=== PATIENT | male | born 1985 | race Caucasian/White ===

== ENCOUNTER 2018-07-15 07:23 | Day surgery (SDC) | payer OTHER ==
[~2018-07-15] VITALS: Ht 175.3 cm; Wt 122.2 kg
[~2018-07-15 07:23] MED LIST: AMOXICILLIN 8751 TAB PO; CLOMID; CLOMIPHENE CITRATE; CLOMIPHENE CITRATE PO; FISH OIL1000 MG PO; HYZAAR 25 MG-101 TAB PO; LEXAPRO 10MG10 MG PO; LEXAPRO20 MG PO; LOPRESSOR 225 MG/TAB PO; MULTI VITAMINS1 TAB PO; NORCO 325 MG-51 TAB PO; PRIL40 PO; PRILOTC; ROXICODONE 55 MG/TAB PO; VITAMIN D 400400 IU PO; ZEBETA 5MG5 MG PO
[2018-07-15 07:52] VITALS: BP 116/68; PULSE 56; TEMP 98.4
[2018-07-15] MEDS ORDERED: CLOMID50 MG (08:13)
[2018-07-15 09:40] VITALS: BP 121/65; PULSE 58; TEMP 98
--- NOTE | 2018-07-15 09:40 | NUR ---
Pt returns from endo procedure via cart. Pt ambulates from cart to recliner with RN assist. Pt oriented but a little drowsy. Pt answers all questions appropriately. Monitors on and alarms set. Call light within reach. Report received from Caitlyn. Family present in room. Pt requests ice water only. Pt denies any pain or nausea.
[2018-07-15 09:45] VITALS: BP 112/61; PULSE 56
[2018-07-15 10:00] VITALS: BP 111/65; PULSE 55
--- NOTE | 2018-07-15 10:00 | NUR ---
Pt taking drink well. No complaints voiced.
[2018-07-15 10:15] VITALS: BP 120/63; PULSE 56
--- NOTE | 2018-07-15 10:30 | NUR ---
Discharge instructions given to patient and . All questions answered to their satisfaction. Handed to patient are discharge instructions, diagnosis information, and a discharge med sheet.
--- NOTE | 2018-07-15 10:35 | NUR ---
Pt transferred out of hospital via wheelchair and Amanda assist to private vehicle driven by .
[2018-07-15 12:53] VITALS: BP 105/46; PULSE 63
== END 2018-07-15 10:35 | disposition home or self-care (01) ==
LOC: SDCO 07:23
DX: K22.70 Barrett's esophagus without dysplasia (principal); R13.12 Dysphagia, oropharyngeal phase; K21.9 Gastro-esophageal reflux disease without esophagitis; Z79.899 Other long term (current) drug therapy; I10 Essential (primary) hypertension; R19.4 Change in bowel habit
CPT/HCPCS: J2250; J3010; J7030

== ENCOUNTER → 2019-03-29 | Outpatient (CLI) | payer OTHER ==
[~2019-03-29] MED LIST changes: +CLOMID50 MG
== END ==
LOC: COL.RAD 13:31
DX: M48.07 Spinal stenosis, lumbosacral region (principal); M51.15 Intervertebral disc disorders with radiculopathy, thoracolumbar region; M48.04 Spinal stenosis, thoracic region

== ENCOUNTER 2019-07-30 11:34 | Observation (INO) | payer OTHER ==
[~2019-07-30] VITALS: Ht 177.8 cm; Wt 124.9 kg
[2019-07-30 12:27] LABS: COLLECTION METHOD CLEAN CATCH
[2019-07-30 12:30] LABS: BASO # 0.1 (0.0-0.2); BASO % 0.6 % (0.0-2.0); EOS % 0.4 % (0-4.0); GRAN # 8.2 (1.4-6.5); GRAN % 82.4 % (42.2-75.2); HEMATOCRIT 45.1 % (42.0-52.0); LYMPH # 1.1 (1.2-3.4); LYMPH % 10.6 % (20.0-51.0); MEAN CELL VOLUME 88 fl (80.0-100.0); MEAN CORPUSCULAR HEMOGLOBIN 31 pg (27.0-31.0); MEAN CORPUSCULAR HGB CONC 36 g/dl (33.0-37.0); MEAN PLATELET VOLUME 9.8 fl (7.4-10.4); MONO # 0.6 (0.1-0.6); MONO % 5.6 % (1.7-9.3); PLATELET COUNT 201 K/mm3 (130-400); REDCELL DISTRIBUTION WIDTH-CV 12.6 % (11.5-14.5)
[2019-07-30 12:32] LABS: PH 7 (5-8); SQUAMOUS EPITHELIAL None Seen /hpf; URINE APPEARANCE Clear; URINE BACTERIA Rare /hpf; URINE BILIRUBIN Negative (NEGATIVE); URINE BLOOD Negative (NEGATIVE); URINE COLOR Yellow; URINE GLUCOSE Negative (NEGATIVE); URINE KETONE Negative (NEGATIVE); URINE LEUKOCYTE ESTERASE Negative (NEGATIVE); URINE NITRATE Negative (NEGATIVE); URINE PROTEIN(semi-quant) Negative (NEGATIVE); URINE RBC 0-2 /hpf; URINE UROBILINOGEN Negative (NEGATIVE)
[2019-07-30 12:53] LABS: ALBUMIN 4.6 gm/dL (3.5-5.0); BILIRUBIN,TOTAL 1.2 mg/dL (0.0-1.0); C-REACTIVE PROTEIN 3.6 mg/dL (0.0-0.9); CALCIUM 9.3 mg/dL (8.4-10.2); CREATININE, serum 0.79 (0.66-1.25); POTASSIUM 3.5 mmol/L (3.4-5.0); TOTAL PROTEIN 7.6 gm/dL (6.4-8.2)
[2019-07-30] MEDS ORDERED: COLACE 100100 MG/CAP PO (16:54)
[2019-07-30] MEDS ORDERED: MOTRIN 600600 MG/TAB PO (16:54)
[2019-07-30] MEDS ORDERED: PERCOCET 325 MG1 TA2 PO (16:54)
[2019-07-30 17:01] VITALS: TEMP 100.2
[2019-07-30 17:10] VITALS: BP 128/56; PULSE 74
--- NOTE | 2019-07-30 17:10 | NUR ---
Patient arrives to floor via bed from PACU. Patient is alert and oriented, reports pain is controlled at this time. Post op checks initiated. Call light within reach.
[2019-07-30 17:25] VITALS: BP 124/63; PULSE 63
[2019-07-30 17:40] VITALS: BP 126/62; PULSE 70
[2019-07-30 17:55] VITALS: BP 124/62; PULSE 68
[2019-07-30 18:25] VITALS: BP 135/62; PULSE 73
--- NOTE | 2019-07-30 19:39 | NUR ---
Patient discharged to home. Vitals stable, use of pain medication discussed. No questions at this time. Patient escorted from floor via wheelchair by [facility] staff. Left by private vehicle.
== END 2019-07-30 19:30 | disposition home or self-care (01) ==
LOC: COL.ER 11:34 → SURG 13:48 → EDBEDREQ 14:34 → SURG 19:30
PROVIDERS: Emergency Medicine; ADMIT Surgery
DX: K35.80 Unspecified acute appendicitis (principal); K21.9 Gastro-esophageal reflux disease without esophagitis; I10 Essential (primary) hypertension; G89.29 Other chronic pain; E66.9 Obesity, unspecified; M54.5 Low back pain; Z88.1 Allergy status to other antibiotic agents
CPT/HCPCS: J1100; J1885; J2405; J2543; J2704; J2710; J3010; J7030; J7120; Q9967

== ENCOUNTER 2020-01-14 15:12 | Emergency (ER) | payer OTHER ==
[~2020-01-14] VITALS: Ht 177.8 cm; Wt 118.2 kg
[~2020-01-14 15:12] MED LIST changes: +COLACE 100100 MG/CAP PO; +MOTRIN 600600 MG/TAB PO; +PERCOCET 325 MG1 TA2 PO
[2020-01-14 15:25] VITALS: BP 117/72; TEMP 98.2
[2020-01-14 16:06] LABS: BASO # 0.1 (0.0-0.2); BASO % 0.9 % (0.0-2.0); EOS # 0.2 (0.0-0.7); EOS % 2.3 % (0-4.0); GRAN # 5.9 (1.4-6.5); GRAN % 64.1 % (42.2-75.2); HEMATOCRIT 42.5 % (42.0-52.0); HEMOGLOBIN 14.5 g/dl (13.5-18.0); LYMPH % 22.1 % (20.0-51.0); MEAN CELL VOLUME 90 fl (80.0-100.0); MEAN CORPUSCULAR HEMOGLOBIN 31 pg (27.0-31.0); MEAN CORPUSCULAR HGB CONC 34 g/dl (33.0-37.0); MEAN PLATELET VOLUME 9.8 fl (7.4-10.4); MONO % 10.3 % (1.7-9.3); PLATELET COUNT 235 K/mm3 (130-400); RED BLOOD COUNT 4.73 M/mm3 (4.20-5.60); REDCELL DISTRIBUTION WIDTH-CV 12.3 % (11.5-14.5)
[2020-01-14 16:30] LABS: ALBUMIN 4.1 gm/dL (3.5-5.0); BILIRUBIN,TOTAL 0.4 mg/dL (0.0-1.0); CALCIUM 8.8 mg/dL (8.4-10.2); POTASSIUM 3.8 mmol/L (3.4-5.0); TOTAL PROTEIN 6.9 gm/dL (6.4-8.2)
[2020-01-14 17:39] VITALS: PULSE 62
== END 2020-01-14 17:40 | disposition home or self-care (01) ==
LOC: COL.ER 15:12
PROVIDERS: Emergency Medicine
DX: M79.661 Pain in right lower leg (principal); I10 Essential (primary) hypertension; K21.9 Gastro-esophageal reflux disease without esophagitis; K22.70 Barrett's esophagus without dysplasia; F17.220 Nicotine dependence, chewing tobacco, uncomplicated; Z83.2 Family history of diseases of the blood and blood-forming organs and certain disorders involving the immune mechanism; Z88.1 Allergy status to other antibiotic agents
CPT/HCPCS: J1650

== ENCOUNTER → 2020-01-15 | Outpatient (CLI) | payer OTHER | LOC: COL.VAS 13:30 | DX: M79.661 Pain in right lower leg (principal) ==

== ENCOUNTER 2024-01-21 08:30 | Day surgery (SDC) | payer OTHER ==
[~2024-01-21] VITALS: Ht 175.3 cm; Wt 107.4 kg
[~2024-01-21 08:30] MED LIST changes: +LR 1,000 ML IV SCH; +Ondansetron 4 MG/2 ML VIAL IV PRN
[2024-01-21] MEDS ORDERED: Lidocaine PF 2% (20 MG/ML) 5 ML VIAL ONE (09:09)
[2024-01-21 10:00] VITALS: BP 101/68; PULSE 66; TEMP 97.6
[2024-01-21 10:15] VITALS: BP 110/62; PULSE 69
--- NOTE | 2024-01-21 10:48 | NUR ---
1000- Pt returns from procedure on cart. Ambulates to recliner wtih assist of two staff, feet elevated. VSS. IV fluids infusing through RFA IV without difficulty. Muffin, water, and cranberry juice given. Pt updates that he is done with procedure. 1013- Discharge instructions reviewed, questions answered 1015- Pt dressed without difficulty 1020- IV site removed, arrives to pt room 1042- Dr. Yanez in to speak with patient 1045- Pt discharges to wifes car via w/c.
[2024-01-21 12:32] VITALS: BP 133/82; PULSE 62; TEMP 97
[2024-01-21] MEDS ORDERED: COZAAR 50MG50 MG/TAB PO (12:36)
[2024-01-21] MEDS ORDERED: HCTZ12.5TAB PO (12:41)
[2024-01-21] MEDS ORDERED: ADIPEX-P37.5 M2 PO (12:42)
[2024-01-21] MEDS ORDERED: DEPO-TESTOS200 MG/M1 IM (12:43)
== END 2024-01-21 10:45 | disposition home or self-care (01) ==
LOC: SDCO 08:30
DX: K21.00 Gastro-esophageal reflux disease with esophagitis, without bleeding (principal); K22.70 Barrett's esophagus without dysplasia; R19.7 Diarrhea, unspecified; R10.84 Generalized abdominal pain; F17.290 Nicotine dependence, other tobacco product, uncomplicated
CPT/HCPCS: J2704; J7120